=== PATIENT | male | born 1960 | race Caucasian/White ===

== ENCOUNTER 2018-06-10 11:04 | Outpatient (CLI) | payer OTHER ==
--- NOTE | 2018-06-10 13:45 | MRI ---
CERVICAL SPINE MRI WITHOUT CONTRAST: Date: 06/10/18 COMPARISON: 01/15/17. HISTORY: Cervical dystonia. Left shoulder and neck pain. TECHNIQUE: Cervical spine MRI is performed without intravenous Gadolinium administration. Multisequential, multi planar imaging is performed. FINDINGS: Redemonstration of anterior fusion plate with transvertebral body screws at C4, C5, C6, and C7. There is associated metallic susceptibility artifact. There is appropriate T1 marrow signal intensity of t he cervical vertebra. Vertebral body height is maintained. There is no fracture. No significant STIR hyperintensity to suggest vertebral body edema or ligamentous injury. Visualized brain parenchyma, cervicomedullary junction, cervical cord, and the upper thoracic cord fernandez ve a normal size and signal intensity. C2-C3: No significant disc osteophyte complex. No significant central canal stenosis. Neural foramina are pa tent. C3-C4: There is a broad based disc osteophyte complex that abuts the thecal sac. There is no significant kiko tral canal stenosis. Right neural foramen is patent. Mild left foraminal narrowing due to degenerativ e change of the uncovertebral joint. C4-C5: No significant disc osteophyte complex. No significant central canal stenosis. Neural foramina are pa tent. C5-C6: No significant disc osteophyte complex. There is mild central canal stenosis. Mild to moderate right foraminal narrowing due to degenerative change of the uncovertebral joint. Minimal left foraminal tip rowing due to degenerative change of the uncovertebral joint. C6-C7: No significant disc osteophyte complex. No significant central canal stenosis. Neural foramina are pa tent bilaterally. C7-T1: No significant disc osteophyte complex. No significant central canal stenosis. Neural foramina are pa tent. IMPRESSION: 1. Stable postsurgical changes of cervical spine. 2. Stable degenerative changes of the cervical spine with greatest degree of central canal stenosis at C5-C6. At this level, there is mild central canal stenosis. There is narrowing of the neural river robbin as detailed above. POS: [facility]
--- NOTE | 2018-06-10 15:11 | CT ---
CT LUMBAR SPINE WITHOUT CONTRAST: COMPARISON: 08/01/13. TECHNIQUE: CT of the lumbar spine is performed without contrast. Reformatted images are submitted for interpret ation. FINDINGS: No retroperitoneal mass, lymphadenopathy, or hematoma. There is a hypodensity in the left kidney sobeida suring 2.2 x 2.4 cm compatible with a simple cyst. Visualized aorta is unremarkable. There are bilateral transpedicular screws at L4, L5, and S1. No perihardware lucency. There is a di sk prosthesis at L4-L5 and L5-S1. There is degenerative change in the posterior elements. There is 1 cm of anterolisthesis of L upon S1, unchanged from the previous exam. On the coronal reformatted images, the spinous processes and transverse processes are intact. Verteb ral body heights are maintained. There is no fracture. T11-T12 and T12-L1: No significant central canal stenosis or neural foraminal narrowing. L1-L2: Minimal generalized disk bulge. No significant central canal stenosis. Patent bilateral jonnathan ral foramina. L2-L3: Generalized disk bulge, ligamentum flavum thickening, and facet hypertrophy result in mild to moderate central canal stenosis. The degree of central canal stenosis has not changed. Mild bilate ral neural foraminal narrowing. L3-L4: Generalized disk bulge, ligamentum flavum thickening, and facet hypertrophy result in moderat e central canal stenosis. Limited evaluation due to beam-attenuation artifact. There is obscuration of the fat in both neural foramina suggesting at least moderate central canal stenosis. Findings ar e similar to the previous examination. L4-L5: Posterior postsurgical decompression changes are noted. There is a disk prosthesis. Bone gr aft material is identified. No high-grade central canal stenosis. Mild right foraminal narrowing. The left neural foramen appears to be patent. Note, there appears to be resection of the left superi or facet of L5. L5-S1: Limited evaluation due to beam-attenuation artifact. There are posterior decompression lei ectomy defects. No high-grade central canal stenosis. Mild to moderate right and mild left neural f oraminal narrowing is suspected. IMPRESSION: Essentially stable degenerative changes and postsurgical changes of the lumbar spine. If there is co ncern, consider post-myelogram CT. POS: [facility]
== END 2018-06-10 11:05 | disposition home or self-care (01) ==
LOC: MRI 11:04
PROVIDERS: ATTEND Psychiatry & Neurology Neurology
DX: G24.3 Spasmodic torticollis (principal); M47.896 Other spondylosis, lumbar region; M47.892 Other spondylosis, cervical region; M48.02 Spinal stenosis, cervical region; M99.81 Other biomechanical lesions of cervical region; Z98.890 Other specified postprocedural states
CPT/HCPCS: 72131; 72141

== ENCOUNTER 2019-10-14 12:17 | Outpatient (CLI) | payer OTHER ==
--- NOTE | 2019-10-14 14:25 | MRI ---
EXAM: MRI cervical spine without contrast HISTORY: Chronic neck pain that has gotten worse COMPARISON: 06/10/2018 TECHNIQUE: Multiplanar multisequence MR images were obtained of the cervical spine without contrast. FINDINGS: The patient is status post anterior fusion of C4-C7. The vertebral bodies demonstrate normal height a nd alignment without fracture or subluxation. The visualized cord demonstrates normal signal throughout. The craniocervical junction is unremarkab le. The prevertebral soft tissues are unremarkable. No paraspinal soft tissue abnormality is seen. C2/3: No significant posterior bulge or protrusion. No posterior facet arthrosis. No central canal stenosis. No neural foraminal stenosis. C3/4: Tiny posterior disc osteophyte complex. Mild left posterior facet arthrosis. Mild central can al stenosis. Moderate left neural foraminal stenosis. C4/5: Fused. No posterior facet arthrosis. No central canal stenosis. No neural foraminal stenosis . C5/6: Fused with stable posterior osteophyte prominence. No posterior facet arthrosis. Moderate kiko tral canal stenosis. Moderate right and mild left neural foraminal stenosis. C6/7: Fused. No posterior facet arthrosis. No central canal stenosis. No neural foraminal stenosis . C7/T1: No significant posterior bulge or protrusion. No posterior facet arthrosis. No central canal stenosis. No neural foraminal stenosis. IMPRESSION: Stable post surgical changes of the cervical spine as above.
--- NOTE | 2019-10-14 15:41 | MRI ---
LUMBAR SPINE MRI WITH AND WITHOUT CONTRAST: HISTORY: Previous laminectomy. Chronic back pain, radiating down the left leg and foot times a couple years. S ymptoms have progressively worsened. TECHNIQUE: The lumbar spine MRI is performed with and without intravenous gadolinium administration. Multisequen tial, multiplanar imaging was performed. FINDINGS: There are bilateral transpedicular screws at L4, L5 and S1. Associated metallic susceptibly artifact. Bilateral pars defects at L5. Persistent 1 cm of anterolisthesis of L5 upon S1. Appropriate signal intensity of the visualized paraspinal muscles and solid organs. Conus medullaris terminates at the mid to inferior aspect of T12. Postcontrast images do not demonstrate any abnormal enhancement with regards to the vertebral bodies. There is no abnormal enhancement within the thecal sac, including the cauda equina and conus medullaris. Appropriate signal intensity of the visualized paraspinal muscles and solid organs. T12-L1: Adequate disc hydration. No significant central canal stenosis or significant neural foramina l narrowing. L1-L2: Adequate disc hydration. Minimal ligament flavum thickening and facet hypertrophy. Minimal fla ttening of the ventral thecal sac secondary to disc material. No significant central canal stenosis. Neural foramina are patent. L2-L3: Adequate disc hydration. No significant loss of disc space height. Broad-based disc bulge with a small central disc protrusion, ligament flavum thickening and facet hypertrophy result in mild stenosis of the thecal sac. Encroachment upon bilateral subarticular zones with partial obscuration o f bilateral traversing L3 nerve roots. Mild right neural foraminal narrowing. Mild to moderate left neural foraminal narrowing. L3-L4: Adequate disc hydration. No significant loss of disc space height. Broad-based disc bulge, lig ament flavum thickening and facet result in mild central canal stenosis. Minimal encroachment upon both subarticular zones without significant mass effect or obscuration of either traversing L4 nerve root. There is a small amount of fluid in the right facet joint. Moderate bilateral neural foraminal narrowing. L4-L5: Left hemilaminotomy defect. Disc prosthesis. No significant central canal stenosis. Moderate t o severe right and moderate left neural foraminal narrowing. No significant enhancing scar tissue on the postcontrast images. L5-S1: Disc prosthesis. Right hemilaminotomy defect. No significant enhancing scar at tissue the oper ative site. There is no significant central canal stenosis. Mild to moderate bilateral foraminal narrowing. IMPRESSION: 1. Lumbar fusion from L4 through S1. 2. Central canal stenosis and neural foramen as described above. 3. Narrowing of bilateral subarticular zones at L2-L3 with mass effect and partial obscuration of hood ateral traversing L3 nerve roots. Transcribed Date/Time: 10/14/2019 3:49 PM
== END 2019-10-14 12:18 | disposition home or self-care (01) ==
LOC: SCSMRI 12:17
PROVIDERS: ATTEND Psychiatry & Neurology Neurology
DX: G24.3 Spasmodic torticollis (principal); M96.1 Postlaminectomy syndrome, not elsewhere classified; M47.812 Spondylosis without myelopathy or radiculopathy, cervical region; M48.061 Spinal stenosis, lumbar region without neurogenic claudication; M48.07 Spinal stenosis, lumbosacral region; Z98.1 Arthrodesis status
CPT/HCPCS: 72141; 72158

== ENCOUNTER 2020-03-29 08:53 | Outpatient (CLI) | payer OTHER ==
--- NOTE | 2020-03-29 09:19 | RAD ---
EXAM: 3 views of the lumbosacral spine HISTORY: Back pain. Patient heard a pop last week. COMPARISON: 10/16/2013 FINDINGS: 3 views of the lumbosacral spine shows the patient to be status post posterior fusion of L4 -S1 with pedicle screws. Disc spacers are seen in good position within the disc spaces. No perihardware lucency is seen. There is normal alignment of the vertebral bodies without subluxation. There is wedge compression deformity of L3 vertebral body which appears chronic with approximately 25% height loss. The sacroiliac joints are unremarkable. IMPRESSION: 1. Postsurgical changes of the lumbar spine without evidence of complication 2. Chronic wedge compression deformity of L3.
== END 2020-03-29 08:54 | disposition home or self-care (01) ==
LOC: SCSRAD 08:53
PROVIDERS: ATTEND Psychiatry & Neurology Neurology
DX: M47.816 Spondylosis without myelopathy or radiculopathy, lumbar region (principal); M43.9 Deforming dorsopathy, unspecified; Z98.890 Other specified postprocedural states
CPT/HCPCS: 72100

== ENCOUNTER 2022-10-09 14:56 | Outpatient (CLI) | payer BC | END 2022-10-09 14:57 | disposition home or self-care (01) | LOC: SCSMRI 14:56 | PROVIDERS: ATTEND Nurse Practitioner Family | DX: M96.1 Postlaminectomy syndrome, not elsewhere classified (principal); M48.061 Spinal stenosis, lumbar region without neurogenic claudication; M48.07 Spinal stenosis, lumbosacral region | CPT/HCPCS: 72148 ==

== ENCOUNTER 2023-01-17 09:01 | Outpatient (CLI) | payer BC | END 2023-01-17 09:02 | disposition home or self-care (01) | LOC: SCSMRI 09:01 | PROVIDERS: ATTEND Nurse Practitioner Family | DX: M47.22 Other spondylosis with radiculopathy, cervical region (principal); M50.13 Cervical disc disorder with radiculopathy, cervicothoracic region; Z98.1 Arthrodesis status | CPT/HCPCS: 72141 ==

== ENCOUNTER 2024-03-13 08:07 | Outpatient (CLI) | payer BC | END 2024-03-13 08:08 | disposition home or self-care (01) | LOC: CT 08:07 | PROVIDERS: ATTEND Urology | DX: R31.0 Gross hematuria (principal); N20.0 Calculus of kidney; R91.1 Solitary pulmonary nodule | CPT/HCPCS: 74178; 82565 ==

== ENCOUNTER 2024-03-19 16:23 | Outpatient (CLI) | payer BC ==
[2024-03-19 17:37] LABS: #Basophils 0.04 10x3/uL (0.0-0.2); #Neutrophils 6.58 10x3/uL (1.5-8.4); %Basophils 0.4 % (0.0-2.0); %Lymphocytes 20.4 % (18.0-47.0); %Neutrophils 65.8 % (40.0-75.0); Hematocrit 38.4 % (38.8-50.0); Mean Corpuscular HGB CONC 33.9 g/dL (32.0-36.0); Mean Corpuscular Hemoglobin 31.6 pg (27.0-33.0); Mean Corpuscular Volume 93.4 fL (81.2-95.1); Mean Platelet Volume 9.2 fL (7.4-10.4); Platelet Count 446 10x3/uL (150-450); RBC Distribution Width 12.5 % (11.5-14.5); Red Blood Cell (RBC) Count 4.11 10x6/uL (4.32-5.72)
[2024-03-19 17:53] LABS: Anion Gap 15 mmol/L (10-20); BUN (Urea Nitrogen) 22 mg/dL (8.4-25.7); Calc. Creatinine Clearance 0 mL/min (70-130); Calcium 9.5 mg/dL (7.8-10.44); Carbon Dioxide 25 mmol/L (23-31); Chloride 100 mmol/L (98-107); Estimated GFR 93; Glucose 103 mg/dL (80-115); PTT 31.9 sec (22.0-33.0); Potassium 4.1 mmol/L (3.5-5.1); Prothrombin Time 10.9 sec (9.5-12.1); Sodium 136 mmol/L (136-145)
== END 2024-03-19 16:24 | disposition home or self-care (01) ==
LOC: LABBT 16:23
PROVIDERS: ATTEND Urology
DX: Z01.818 Encounter for other preprocedural examination (principal); R31.0 Gross hematuria; R93.41 Abnormal radiologic findings on diagnostic imaging of renal pelvis, ureter, or bladder
CPT/HCPCS: 80048; 85025; 85610; 85730; 87086; 93005; 93010

== ENCOUNTER 2024-03-20 11:00 | Outpatient (CLI) | payer BC | END 2024-03-20 11:01 | disposition home or self-care (01) | LOC: PET 11:00 | PROVIDERS: ATTEND Internal Medicine Critical Care Medicine | DX: R91.1 Solitary pulmonary nodule (principal) | CPT/HCPCS: 78815; A9552 ==

== ENCOUNTER 2024-03-24 09:29 | Day surgery (SDC) | payer BC ==
[2024-03-19 16:44] VITALS: BMI 25.1
[2024-03-24] MEDS ORDERED: fentaNYL PF 100 MCG/2 ML SYRINGE ONE ×3 (10:09→15:11)
[2024-03-24] MEDS ORDERED: Lidocaine 1% PF 5 ML VIAL ONE (10:10)
[2024-03-24] MEDS ORDERED: PROPOFOL 20 ML ONE (10:10)
[2024-03-24] MEDS ORDERED: Rocuronium Bromide 10 MG/ML (10ML VIAL) ONE (10:10)
[2024-03-24] MEDS ORDERED: Iopamidol 30 ML ONE (12:25)
[2024-03-24] MEDS ORDERED: Midazolam HCl 2 mg/2 ml Vial ONE (12:34)
[2024-03-24] MEDS ORDERED: CEFAZOLIN 2 GM VIAL ONE (12:41)
[2024-03-24] MEDS ORDERED: Sodium Chloride 0.9% 100 ML ONE (12:42)
[2024-03-24] MEDS ORDERED: ePHEDrine Sulfate 50 MG/10 ML VIAL ONE (13:19)
[2024-03-24] MEDS ORDERED: Dexamethasone 4 mg/ml Vial ONE (13:19)
[2024-03-24] MEDS ORDERED: Ondansetron PF 4 MG/2 ML Vial ONE (14:28)
[2024-03-24] MEDS ORDERED: SUGAMMADEX SODIUM 200 MG/2 ML VIAL ONE (14:28)
[2024-03-24] MEDS ORDERED: Morphine 2 MG/ML VIAL ONE ×2 (16:25→16:44)
== END 2024-03-24 17:05 | disposition home or self-care (01) ==
LOC: SDC 09:29
PROVIDERS: ATTEND Urology
PROC: 0T778DZ Dilation of Left Ureter with Intraluminal Device, Via Natural or Artificial Opening Endoscopic (ICD-10-PCS; principal; 2024-03-24)
PROC: 0TB18ZX Excision of Left Kidney, Via Natural or Artificial Opening Endoscopic, Diagnostic (ICD-10-PCS; principal; 2024-03-24)
DX: C64.2 Malignant neoplasm of left kidney, except renal pelvis (principal); R31.0 Gross hematuria; N40.1 Benign prostatic hyperplasia with lower urinary tract symptoms; N13.8 Other obstructive and reflux uropathy; I10 Essential (primary) hypertension; E78.00 Pure hypercholesterolemia, unspecified; R93.41 Abnormal radiologic findings on diagnostic imaging of renal pelvis, ureter, or bladder; Z88.8 Allergy status to other drugs, medicaments and biological substances
CPT/HCPCS: 74420; 88104; 88112; 88305; C2617; J1100; J2250; J2272; J2405; J2704; J3490; Q9967

== ENCOUNTER 2024-03-31 11:12 | Outpatient (CLI) | payer BC | END 2024-03-31 11:13 | disposition home or self-care (01) | LOC: LABBT 11:12 | PROVIDERS: ATTEND Thoracic Surgery (Cardiothoracic Vascular Surgery) | DX: Z01.810 Encounter for preprocedural cardiovascular examination (principal); R91.8 Other nonspecific abnormal finding of lung field | CPT/HCPCS: 93005; 93010 ==

== ENCOUNTER 2024-03-31 14:00 | Inpatient (IN) | payer BC ==
[2024-03-31 12:18] LABS: Hematocrit 34.7 % (38.8-50.0); Mean Corpuscular HGB CONC 34.6 g/dL (32.0-36.0); Mean Corpuscular Hemoglobin 31.9 pg (27.0-33.0); Mean Corpuscular Volume 92.3 fL (81.2-95.1); Mean Platelet Volume 9.3 fL (7.4-10.4); Platelet Count 416 10x3/uL (150-450); RBC Distribution Width 12.5 % (11.5-14.5); Red Blood Cell (RBC) Count 3.76 10x6/uL (4.32-5.72); White Blood Cell (WBC) Count 8.1 10x3/uL (3.5-10.5)
[2024-03-31 12:54] LABS: Anion Gap 13 mmol/L (10-20); BUN (Urea Nitrogen) 21 mg/dL (8.4-25.7); Calc. Creatinine Clearance 0 mL/min (70-130); Calcium 9.5 mg/dL (7.8-10.44); Carbon Dioxide 26 mmol/L (23-31); Chloride 101 mmol/L (98-107); Estimated GFR 88; Glucose 94 mg/dL (80-115); Potassium 4.4 mmol/L (3.5-5.1); Sodium 136 mmol/L (136-145)
[2024-04-01] MEDS ORDERED: fentaNYL 50 mcg/mL 1 mL Vial ONE ×3 (07:01→10:10)
[2024-04-01] MEDS ORDERED: Midazolam HCl 2 mg/2 ml Vial ONE (07:01)
[2024-04-01] MEDS ORDERED: Lidocaine 1.5% w/Epi 1:200K 30 ML VIAL (Epid Use) ONE (07:15)
[2024-04-01] MEDS ORDERED: CEFAZOLIN 2 GM VIAL ONE (07:20)
[2024-04-01] MEDS ORDERED: Sodium Chloride 0.9% 100 ML ONE (07:21)
[2024-04-01] MEDS ORDERED: PROPOFOL 20 ML ONE (07:23)
[2024-04-01] MEDS ORDERED: fentaNYL PF 100 MCG/2 ML SYRINGE ONE (07:23)
[2024-04-01] MEDS ORDERED: Lidocaine 2% PF 5 ML VIAL ONE (07:23)
[2024-04-01] MEDS ORDERED: Rocuronium Bromide 10 MG/ML (10ML VIAL) ONE (07:23)
[2024-04-01] MEDS ORDERED: HYDROcodone/Acetaminophen 5/325 mg Tablet PO PRN ×2 (07:45)
[2024-04-01] MEDS ORDERED: Promethazine HCl 25 MG/ML VIAL IM PRN ×3 (07:45→09:34)
[2024-04-01] MEDS ORDERED: traMADol HCl 50 MG TAB PO PRN (07:45)
[2024-04-01] MEDS ORDERED: Ondansetron PF 4 MG/2 ML Vial IVP PRN ×2 (07:45→09:34)
[2024-04-01] MEDS ORDERED: Zolpidem Tartrate 5 MG TAB PO PRN (07:45)
[2024-04-01] MEDS ORDERED: diphenhydrAMINE 50 MG/ML VIAL IVP PRN (07:45)
[2024-04-01] MEDS ORDERED: Naloxone HCl 0.4 mg/ml Vial IV PRN (07:45)
[2024-04-01] MEDS ORDERED: Bupivacaine 0.25% 10 ML VIAL EPIDURAL PRN (07:45)
[2024-04-01] MEDS ORDERED: Promethazine HCl 25 MG SUPP PR PRN (07:45)
[2024-04-01] MEDS ORDERED: diphenhydrAMINE 25 MG CAP PO PRN (07:45)
[2024-04-01] MEDS ORDERED: Naloxone HCl 0.4 mg/ml Vial IVP PRN (07:45)
[2024-04-01] MEDS ORDERED: diphenhydrAMINE 50 MG/ML VIAL IM PRN (07:45)
[2024-04-01] MEDS ORDERED: Moisturizing Cream (Eucerin) 113 GM JAR TOP PRN (07:45)
[2024-04-01] MEDS ORDERED: Bupivacaine 0.25% HCL 30 ML VIAL ONE (07:46)
[2024-04-01] MEDS ORDERED: PHENYLEPHRINE-NS 100 MCG/ML 10 ML SYRINGE ONE (07:52)
[2024-04-01] MEDS ORDERED: Phenylephrine 10 MG/ML VIAL ONE (07:53)
[2024-04-01] MEDS ORDERED: Sodium Chloride 0.9% 250 ML 250 ML ONE (07:53)
[2024-04-01] MEDS ORDERED: Ketorolac Tromethamine 30 MG (1 mL) VIAL ONE (08:30)
[2024-04-01] MEDS ORDERED: Ondansetron PF 4 MG/2 ML Vial ONE (08:30)
[2024-04-01] MEDS ORDERED: Dexamethasone 20 MG/5 ML VIAL ONE (08:30)
[2024-04-01] MEDS ORDERED: HYDROmorphone 2 MG/ML VIAL SLOW IVP PRN (08:41)
[2024-04-01] MEDS ORDERED: Ondansetron HCl/PF 4 MG/2 ML Vial IVP PRN (08:41)
[2024-04-01] MEDS ORDERED: PACU-Morphine 4MG/ML VIAL SLOW IVP PRN (08:41)
[2024-04-01] MEDS ORDERED: SUGAMMADEX SODIUM 200 MG/2 ML VIAL ONE (09:29)
[2024-04-01] MEDS ORDERED: [UNRECOGNIZED DRUG - OTHER] IVPB SCH (09:34)
[2024-04-01] MEDS ORDERED: hydrALAZINE 20 MG/ML VIAL SLOW IVP PRN (09:34)
[2024-04-01] MEDS ORDERED: Ipratropium/Albuterol 3 ML NEB NEB PRN (09:34)
[2024-04-01] MEDS ORDERED: CEFAZOLIN 2 GM in Sodium Chloride 0.9% 100 ML IVPB SCH (09:34)
[2024-04-01] MEDS ORDERED: LEVOFLOXACIN IVPB SCH (09:34)
[2024-04-01] MEDS ORDERED: Nitroglycerin 50 MG/250 ML BOT 250 ML IVPB PRN (09:34)
[2024-04-01] MEDS ORDERED: Phenylephrine 40 MG/NS 250 ML 40 MG in Premix 1 BAG IVPB PRN (09:45)
[2024-04-01] MEDS: Sodium Chloride 0.9% 1,000 ML IV SCH (11:03)
[2024-04-01] MEDS: Piperacillin/Tazobactam 3.375 GM in Sodium Chloride 0.9% 100 ML IVPB SCH ×2 (11:22→15:47)
[2024-04-01] MEDS: Ketorolac Tromethamine 30 MG (1 mL) VIAL IVP SCH (11:22)
[2024-04-01] MEDS: traMADol HCl 50 MG TAB PO PRN (11:23)
[2024-04-01 11:33] VITALS: BMI 26.6
[2024-04-01] MEDS: Acetaminophen/Codeine 30-300mg Tablet PO PRN (14:01)
[2024-04-01] MEDS: Gabapentin 300 MG CAP PO SCH ×2 (21:00→21:29)
[2024-04-01] MEDS: Fish Oil 1,000 MG CAP PO SCH (21:29)
[2024-04-01] MEDS: Zolpidem Tartrate 5 MG TAB PO SCH (21:31)
[2024-04-01] MEDS: tiZANidine HCl 4 MG TAB PO SCH (21:31)
[2024-04-01] MEDS: Rosuvastatin 5 MG TAB PO SCH (21:31)
[2024-04-02] MEDS: FENTANYL 500 MCG/10 ML VIAL 500 MCG, Bupivacaine 0.75% 10 ML in Sodium Chloride 0.9% 80 ML EPIDURAL SCH (01:57)
[2024-04-02 04:52] LABS: #Basophils Less than 0.03 10x3/uL (0.0-0.2); #Eosinphils Less than 0.03 10x3/uL (0.0-0.7); %Basophils 0.1 % (0.0-1.0); %Lymphocytes 9.4 % (21.0-51.0); %Neutrophils 80.1 % (42.0-75.0); Hematocrit 33.5 % (42.0-52.0); Hemoglobin 11.1 g/dL (14.0-18.0); Mean Corpuscular HGB CONC 33.1 g/dL (32.0-36.0); Mean Corpuscular Hemoglobin 30.7 pg (27.0-31.0); Mean Corpuscular Volume 92.8 fL (78.0-98.0); Mean Platelet Volume 9.5 fL (7.4-10.4); Platelet Count 373 10x3/uL (130-400); RBC Distribution Width 12.7 % (11.5-14.5); Red Blood Cell (RBC) Count 3.61 mill/uL (4.70-6.10)
[2024-04-02 05:20] LABS: Anion Gap 11 mmol/L (10-20); BUN (Urea Nitrogen) 17 mg/dL (8.4-25.7); Calc. Creatinine Clearance 114 mL/min (70-130); Calcium 8.8 mg/dL (7.8-10.44); Carbon Dioxide 20 mmol/L (23-31); Chloride 109 mmol/L (98-107); Estimated GFR 99; Glucose 169 mg/dL (80-115); Potassium 4.1 mmol/L (3.5-5.1); Sodium 136 mmol/L (136-145)
[2024-04-02] MEDS: Pantoprazole DR 40 MG TAB PO SCH (08:08)
[2024-04-02] MEDS: Carvedilol 25 MG TAB PO SCH (08:08)
[2024-04-02] MEDS: Aspirin Chewable 81 MG TAB PO SCH (08:08)
[2024-04-02] MEDS: Tamsulosin HCl 0.4 MG CAP PO SCH (08:08)
[2024-04-02] MEDS ORDERED: Amlodipine 5 MG TAB PO SCH (09:00)
[2024-04-02] MEDS: Nitrofurantoin Macrocrystal 50 MG CAP PO SCH (09:23)
[2024-04-02] MEDS: CeleCOXIB 100 MG CAP PO SCH (09:23)
[2024-04-02] MEDS: Amlodipine 5 MG TAB PO SCH (13:40)
[2024-04-03] MEDS: Carvedilol 25 MG TAB PO SCH ×2 (07:37→20:42)
[2024-04-03] MEDS: Sulfameth/Trimethoprim DS 800-160mg TAB PO SCH (07:38)
[2024-04-03 13:50] VITALS: BP 115/63
[2024-04-04] MEDS ORDERED: Non-Formulary Item 1 EACH (Acetaminophen With Codeine [Acetaminophen-Cod #4 Tablet] 1 EAC PO PRN (06:12)
[2024-04-04 12:03] VITALS: TEMP 97.7
[2024-04-10 14:16] LABS: Fungus Stain Final report (.)
== END 2024-04-04 12:52 | disposition home or self-care (01) | DRG 165 ==
LOC: SURG A 04-01 06:16 → CCU 04-01 11:14 → EDSTATUS 04-01 14:00
PROVIDERS: ADMIT Thoracic Surgery (Cardiothoracic Vascular Surgery); ATTEND Thoracic Surgery (Cardiothoracic Vascular Surgery)
PROC: 0BTJ0ZZ Resection of Left Lower Lung Lobe, Open Approach (ICD-10-PCS; principal; 2024-04-01)
DX: J85.2 Abscess of lung without pneumonia (principal); R91.1 Solitary pulmonary nodule; I10 Essential (primary) hypertension; M96.1 Postlaminectomy syndrome, not elsewhere classified; G89.4 Chronic pain syndrome; M47.816 Spondylosis without myelopathy or radiculopathy, lumbar region; J43.9 Emphysema, unspecified; M25.519 Pain in unspecified shoulder; G56.02 Carpal tunnel syndrome, left upper limb; M50.222 Other cervical disc displacement at C5-C6 level; M75.42 Impingement syndrome of left shoulder; S43.432A Superior glenoid labrum lesion of left shoulder, initial encounter; G24.3 Spasmodic torticollis; G56.03 Carpal tunnel syndrome, bilateral upper limbs; N52.9 Male erectile dysfunction, unspecified; E78.2 Mixed hyperlipidemia; N20.0 Calculus of kidney; M47.812 Spondylosis without myelopathy or radiculopathy, cervical region; Z90.49 Acquired absence of other specified parts of digestive tract; Z90.89 Acquired absence of other organs; Z98.1 Arthrodesis status; Z87.891 Personal history of nicotine dependence; Z79.891 Long term (current) use of opiate analgesic
CPT/HCPCS: 71045; 80048; 85025; 85027; 86850; 86900; 86901; 87070; 87077; 87102; 87116; 87186; 87205; 87206; 88309; 88312; 88331; A4649; J0665; J1100; J1885; J2001; J2250; J2371; J2405; J2543; J2704; J3010; J3490; J7050

== ENCOUNTER 2024-04-15 13:48 | Outpatient (CLI) | payer BC | END 2024-04-15 13:49 | disposition home or self-care (01) | LOC: RAD 13:48 | PROVIDERS: ATTEND Thoracic Surgery (Cardiothoracic Vascular Surgery) | DX: R91.1 Solitary pulmonary nodule (principal) | CPT/HCPCS: 71046 ==

== ENCOUNTER 2024-07-04 06:19 | Day surgery (SDC) | payer BC ==
[2024-07-03 12:24] VITALS: BMI 25.7
[2024-07-04] MEDS ORDERED: EPINEPHrine 1 MG/ML VIAL ONE (06:33)
[2024-07-04] MEDS ORDERED: Lidocaine 1% (PF) 30 ML VIAL ONE (06:33)
[2024-07-04] MEDS ORDERED: Bupivacaine PF 0.5% 30 ML VIAL ONE (06:34)
[2024-07-04] MEDS ORDERED: Lidocaine 1% PF 5 ML VIAL ONE (06:58)
[2024-07-04] MEDS ORDERED: fentaNYL PF 100 MCG/2 ML SYRINGE ONE ×2 (06:58→12:27)
[2024-07-04] MEDS ORDERED: PROPOFOL 20 ML ONE ×3 (06:58→12:26)
[2024-07-04] MEDS ORDERED: CEFAZOLIN 2 GM VIAL ONE (07:14)
[2024-07-04] MEDS ORDERED: Sodium Chloride 0.9% 100 ML ONE (07:14)
[2024-07-04] MEDS ORDERED: Midazolam HCl 2 mg/2 ml Vial ONE (07:19)
[2024-07-04] MEDS ORDERED: PHENYLEPHRINE-NS 100 MCG/ML 10 ML SYRINGE ONE (10:27)
[2024-07-04] MEDS ORDERED: Calcium Chloride 1 GM/10 ML Abboject SYRINGE ONE (12:14)
[2024-07-04] MEDS ORDERED: Ondansetron PF 4 MG/2 ML Vial ONE (12:43)
[2024-07-04] MEDS ORDERED: Dexamethasone 4 mg/ml Vial ONE (12:43)
== END 2024-07-04 08:20 | disposition home or self-care (01) ==
LOC: SDC 06:19
PROVIDERS: ATTEND Thoracic Surgery (Cardiothoracic Vascular Surgery)
PROC: 0JPT3XZ Removal of Tunneled Vascular Access Device from Trunk Subcutaneous Tissue and Fascia, Percutaneous Approach (ICD-10-PCS; principal; 2024-07-04)
DX: T80.212A Local infection due to central venous catheter, initial encounter (principal); C65.2 Malignant neoplasm of left renal pelvis; E78.5 Hyperlipidemia, unspecified; F17.290 Nicotine dependence, other tobacco product, uncomplicated; J44.9 Chronic obstructive pulmonary disease, unspecified; Z90.49 Acquired absence of other specified parts of digestive tract; Z90.89 Acquired absence of other organs; Z98.890 Other specified postprocedural states; Z79.899 Other long term (current) drug therapy; Z88.8 Allergy status to other drugs, medicaments and biological substances
CPT/HCPCS: 87070; 87077; 87186; 87205; J0171; J0665; J1100; J1642; J2001; J2250; J2405; J2704

== ENCOUNTER 2025-08-24 14:58 | Outpatient (CLI) | payer BC | END 2025-08-24 14:59 | disposition home or self-care (01) | LOC: SCSMRI 14:58 | PROVIDERS: ATTEND Specialist | DX: M47.22 Other spondylosis with radiculopathy, cervical region (principal); M47.23 Other spondylosis with radiculopathy, cervicothoracic region; M96.1 Postlaminectomy syndrome, not elsewhere classified; M48.061 Spinal stenosis, lumbar region without neurogenic claudication; M47.816 Spondylosis without myelopathy or radiculopathy, lumbar region; M47.817 Spondylosis without myelopathy or radiculopathy, lumbosacral region; Z98.1 Arthrodesis status | CPT/HCPCS: 72141; 72148 ==

== ENCOUNTER 2025-09-01 08:31 | Outpatient (CLI) | payer BC ==
[2025-09-01 09:01] LABS: Estimated GFR - POC 52.0
[2025-09-01] MEDS ORDERED: Iopamidol 370 76% 100 ML VIAL ONE (13:24)
== END 2025-09-01 08:32 | disposition home or self-care (01) ==
LOC: CT 08:31
PROVIDERS: ATTEND Internal Medicine Hematology & Oncology
DX: C66.9 Malignant neoplasm of unspecified ureter (principal); C64.2 Malignant neoplasm of left kidney, except renal pelvis; C67.8 Malignant neoplasm of overlapping sites of bladder; J18.9 Pneumonia, unspecified organism
CPT/HCPCS: 36415; 71260; 74177; 82565